=== PATIENT | female | born 1985 | race Caucasian/White ===

== ENCOUNTER → 2022-06-13 08:23 | Outpatient (BNVA) | payer OTHER, SELFPAY | PROVIDERS: Visit Provider Internal Medicine | DX: E03.9 Hypothyroidism, unspecified (principal); E55.9 Vitamin D deficiency, unspecified | CPT/HCPCS: 99202 ==

== ENCOUNTER 2022-06-13 09:05 | Outpatient (REF) | payer OTHER, SELFPAY ==
[2022-06-13 11:43] LABS: Free T4 (Free Thyroxine) 1.03 ng/dL (0.71-1.85); Thyroid Stimulating Hormone 1.22 uIU/mL (0.32-4.0); Vitamin D 25-OH Total 23.8 ng/mL (>30)
[2022-06-15 10:53] LABS: Thyroglobulin Antibodies 75 IU/mL (< or = 1); Thyroid Peroxidase Antibodies 172 IU/mL (<9)
== END 2022-06-13 09:06 | disposition home or self-care (01) ==
LOC: HO.10HDL 09:05
PROVIDERS: Visit Provider Internal Medicine
DX: E03.9 Hypothyroidism, unspecified (principal); E55.9 Vitamin D deficiency, unspecified
CPT/HCPCS: 36415; 82306; 84439; 84443; 86376; 86800

== ENCOUNTER 2022-07-09 12:50 | Outpatient (REF) | payer OTHER, SELFPAY ==
--- NOTE | ~2022-07-09 | US_ITS ---
EXAMINATION: US THYROID CLINICAL INFORMATION: Hypothyroidism, unspecified. COMPARISON: None available. TECHNIQUE: Linear transducer grayscale and color Doppler examination with attention to the region of the thyroid. FINDINGS: SIZE: Measurements of the thyroid lobes and nodules are given in sagittal, anteroposterior and transverse dimensions respectively. Right Thyroid Lobe: 4.1 x 2.0 x 1.6 cm, volume 6.9 mL. Parenchyma: The gland echotexture is heterogeneous. Thyroid vascularity is increased. Left Thyroid Lobe: 4.9 x 1.7 x 1.5 cm, volume 6.5 mL. Parenchyma: The gland echotexture is heterogeneous. Thyroid vascularity is increased. Isthmus: 0.4 cm in maximum AP dimension. No focal thyroid nodule is seen. NODES: No lymphadenopathy is seen in the tissue surrounding the thyroid gland. US/US thyroid IMPRESSION: Heterogeneous hypervascular thyroid which can be seen in the setting of thyroiditis. ACR TI-RADS RECOMMENDATION REFERENCE: Ultrasound-guided fine-needle aspiration, followup ultrasound, no further follow up. * TR1 (0 point) and TR2 (2 points): No FNA or follow up. * TR3 (3 points): FNA if more than or equal to 2.5 cm in maximum dimension, followup ultrasound in 1, 3 and 5 years if 1.5 to 2.4 cm in maximum dimension. * TR4 (4-6 points): FNA if more than or equal to 1.5 cm in maximum dimension, followup ultrasound in 1, 2, 3 and 5 years if 1 to 1.4 cm in maximum dimension. * TR5 (more than or equal to 7 points): FNA if more than or equal to 1 cm in maximum dimension, followup ultrasound every year for 5 years if 0.5 to 0.9 cm in maximum dimension. * TR3, TR4 or TR5 nodules that are below the size threshold for followup receive no follow up.
== END 2022-07-09 12:51 | disposition home or self-care (01) ==
LOC: HO.HMGCX 12:50
PROVIDERS: Visit Provider Internal Medicine
DX: E03.9 Hypothyroidism, unspecified (principal)
CPT/HCPCS: 76536

== ENCOUNTER 2022-09-17 14:21 | Outpatient (REF) | payer OTHER, SELFPAY | END 2022-09-17 14:22 | disposition home or self-care (01) | LOC: HO.HMGCLDS 14:21 | PROVIDERS: Absent Provider Internal Medicine Endocrinology, Diabetes & Metabolism; Visit Provider Internal Medicine | DX: E03.9 Hypothyroidism, unspecified (principal) | CPT/HCPCS: 36415; 84439; 84443 ==

== ENCOUNTER 2022-09-26 08:31 | Outpatient (AMB) | payer OTHER, SELFPAY ==
--- NOTE | 2022-09-26 08:31 | A.OFFVIS_ITS ---
Intake Intake Visit Reasons: F/U Hypothyroidism Intake Note: pt is here for hypothyroidism Allergies No Known Allergies Allergy (Verified 09/26/22 08:55) Medication List - Last Reconciled 09/26/22 by Mone Pelayo DO cholecalciferol (vitamin D3) 50 mcg PO DAILY 30 days PNV 119-iron fum-folic acid 29 mg iron- 1 mg tabs PO Tirosint (levothyroxine) 137 mcg PO DAILY 30 days NS HPI HPI Comments History of Present Illness Details 37 YO Female with a PMHx of hypothyroidism who is seen in F/U. She is currently , 9 weeks gestation. She reports that 8 years ago in her first year she noted fatigue, hair loss and other symptoms of hypothyroidism. She reports shortly thereafter she was diagnosed with hypothyroidism and was started on lt4, currently using tirosint 100 mcg PO daily. She then this year began experiencing fatigue, brain fog, hair loss and body aches. She was referred to Rheumatology and underwent evaluation. 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 She then requested referral to Endocrinology. She notified us of her at approximately 4 weeks gestation. Her dose of Tirosint was increased by 25% at that time from 100 mcg PO daily to 125 mcg PO daily. Labs were repeated 6 weeks later with TSH 2.8. Her dose of Tirosint was then increased to 137 mcg PO daily, which she remains on now. She denies any family history of thyroid disease. Labs: Laboratory Tests 06/13/22 09/17/22 09:09 14:26 TSH 2.80 Free T4 1.00 Thyroglobulin Anti body 75 H Thyroid Peroxidase Ab 172 H PFSH Medical History Hypothyroidism Vitamin D deficiency Surgical History No pertinent past surgical history Family History Father No known health problems Mother No known health problems Social History Alcohol intake: never Patient Tobacco Use Status: Never used Tobacco Assessment & Plan Assessment & Plan (1) Hypothyroidism: Code(s): E03.9 - Hypothyroidism, unspecified Plan: Patient with a history of hypothyroidism. She is now . Her dose of levothyroxine was Tirosint was increased further to 137 mcg PO daily as TSH was above goal of 0.1-2.4. Will repeat levels in 3 weeks time and make further adj ustments as indicated. She will repeat labs q4 weeks throughout her . All of her questions were answered. She is in agreement with this plan of care. I spent 20 minutes in reviewing the record, seeing the patient and documenting in the medical record, including 5 minutes on the phone with the Patient. Orders: Orders Free T4 (Free Thyroxine) 8 Weeks E03.9 - Hypothyroidism, unspecified Thyroid Stimulating Hormone 8 Weeks E03.9 - Hypothyroidism, unspecified Telehealth Telehealth Location of provider rendering services: practice address Location of patient: address on file Patient Identification confirmed using: Name, : Yes Telehealth method: voice only Patient verbally consented to treatment: Yes Patient verbally consented to billing insurance company: Yes Patient informed of any privacy concerns related to visit: Yes Coding Level of Care Code Tele Est Pt Level 3 (17574) Diagnoses Hypothyroidism E03.9
== END 2022-09-26 12:55 | disposition home or self-care (01) ==
LOC: HO.ENCR 08:31
PROVIDERS: Visit Provider Internal Medicine
DX: E03.9 Hypothyroidism, unspecified (principal)
CPT/HCPCS: 99213

== ENCOUNTER → 2022-09-26 08:31 | Outpatient (BNVA) | payer OTHER, SELFPAY | PROVIDERS: Visit Provider Internal Medicine ==

== ENCOUNTER 2022-10-15 11:03 | Outpatient (REF) | payer OTHER, SELFPAY ==
[2022-10-15 15:15] LABS: Free T4 (Free Thyroxine) 0.87 ng/dL (0.71-1.85)
== END 2022-10-15 11:04 | disposition home or self-care (01) ==
LOC: HO.HMGCLDS 11:03
PROVIDERS: Absent Provider Internal Medicine; Visit Provider Internal Medicine Endocrinology, Diabetes & Metabolism
DX: E03.9 Hypothyroidism, unspecified (principal)
CPT/HCPCS: 36415; 84439; 84443

== ENCOUNTER 2022-11-19 13:01 | Outpatient (REF) | payer OTHER, SELFPAY ==
[2022-11-19 16:38] LABS: Free T4 (Free Thyroxine) 0.75 ng/dL (0.71-1.85); Thyroid Stimulating Hormone 1.19 uIU/mL (0.32-4.0)
== END 2022-11-19 13:02 | disposition home or self-care (01) ==
LOC: HO.HMGCLDS 13:01
PROVIDERS: Internal Medicine Endocrinology, Diabetes & Metabolism; Visit Provider Internal Medicine
DX: E03.9 Hypothyroidism, unspecified (principal)
CPT/HCPCS: 36415; 84439; 84443

== ENCOUNTER 2022-12-10 10:49 | Outpatient (REF) | payer OTHER, SELFPAY ==
[2022-12-10 14:24] LABS: Free T4 (Free Thyroxine) 0.85 ng/dL (0.71-1.85); Thyroid Stimulating Hormone 0.68 uIU/mL (0.32-4.0)
== END 2022-12-10 10:50 | disposition home or self-care (01) ==
LOC: HO.HMGCLDS 10:49
PROVIDERS: Visit Provider Internal Medicine Endocrinology, Diabetes & Metabolism
DX: E03.9 Hypothyroidism, unspecified (principal)
CPT/HCPCS: 36415; 84439; 84443

== ENCOUNTER 2023-02-18 11:19 | Outpatient (AMB) | payer OTHER, SELFPAY ==
[2023-02-18 11:22] VITALS: BP 120/64; PULSE 80; BMI 42.6
--- NOTE | 2023-02-18 11:22 | A.OFFVIS_ITS ---
Intake Vital Signs 02/18/23 11:22 Height 5 ft 6 in Weight 264 lb 1.82 oz BMI 42.6 BP 120/64 Blood Pressure Location Lt brachial Position Sitting Pulse 80 Pulse Source Pulse Oximeter Intake Visit Reasons: F/U Hypothyroidism/CONFIRMED Intake Note: Patient present today for Hypothyroidism follow up visit. Previously managed by Dr. Bob. Prototype Special Build Required: No Accompanied by: Self / Same As Patient Allergies No Known Allergies Allergy (Verified 02/18/23 11:26) Medication List - Last Reconciled 02/18/23 by Placido Toure MD cholecalciferol (vitamin D3) 50 mcg PO DAILY 30 days PNV 119-iron fum-folic acid 29 mg iron- 1 mg tabs PO Tirosint (levothyroxine) 137 mcg PO DAILY 30 days NS HPI HPI Comments History of Present Illness Details 37 YO Female with a PMHx of hypothyroidi sm who is seen in F/U. She is currently , 30 weeks gestation. She reports that 8 years ago in her first year she noted fatigue, hair loss and other symptoms of hypothyroidism. She reports shortly thereafter she was diagnosed with hypothyroidism and was started on lt4, currently using tirosint 137 mcg PO daily. She then this year began experiencing fatigue, brain fog, hair loss and body aches. She was referred to Rheumatology and underwent evaluation. 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 She then requested referral to Endocrinology. She notified us of her at approximately 4 weeks gestation. Her dose of Tirosint was increased by 25% at that time from 100 mcg PO daily to 125 mcg PO daily. Labs were repeated 6 weeks later with TSH 2.8. Her dose of Tirosint was then increased to 137 mcg PO daily, which she remains on now. She denies any family history of thyroid disease. Labs: Laboratory Tests 06/13/22 09/17/22 09:09 14:26 TSH 2.80 Free T4 1.00 Thyroglobulin Anti body 75 H Thyroid Peroxidase Ab 172 H Blood work done 01/21 at [facility] Medical History Hypothyroidism Vitamin D deficiency Surgical History No pertinent past surgical history Family History Father No known health problems Mother No known health problems Social History (System 12/27/22 @ 13:35 by Mee Aldrich) Alcohol intake: never Patient Tobacco Use Status: Never used Tobacco Physical Exam Vital Signs: Last Vital Signs Pulse 80 02/18/23 11:22 BP 120/64 02/18/23 11:22 BMI result Body Mass Index 42.6 Const Other: Thyroid gland is normal size weighs about 15 g . r Assessment & Plan Assessment & Plan (1) Hypothyroidism: Code(s): E03.9 - Hypothyroidism, unspecified Plan: This 37-year-old white female with a history of hypothyroidism. Currently 30 weeks . She appears to be clinically euthyroid on Tirosint 137 ug Plan is to recheck TSH and free T4 and adjust tirosint accordingly. Will also placed orders for thyroid function studies to be done in 4 weeks and 8 weeks post- Orders: Orders Thyroid Stimulating Hormone Today E03.9 - Hypothyroidism, unspecified Free T4 (Free Thyroxine) 4 Weeks E03.9 - Hypothyroidism, unspecified Free T4 (Free Thyroxine) Today E03.9 - Hypothyroidism, unspecified Thyroid Stimulating Hormone 4 Weeks E03.9 - Hypothyroidism, unspecified Free T4 (Free Thyroxine) 8 Weeks E03.9 - Hypothyroidism, unspecified Thyroid Stimulating Hormone 8 Weeks E03.9 - Hypothyroidism, unspecified Coding Level of Care Code Est Pt Level 3 (47671) Diagnoses Hypothyroidism E03.9
== END 2023-02-18 11:38 | disposition home or self-care (01) ==
PROVIDERS: Visit Provider Internal Medicine Endocrinology, Diabetes & Metabolism
DX: E03.9 Hypothyroidism, unspecified (principal)
CPT/HCPCS: 99213

== ENCOUNTER → 2023-02-18 11:19 | Outpatient (BNVA) | payer OTHER, SELFPAY | PROVIDERS: Visit Provider Internal Medicine Endocrinology, Diabetes & Metabolism | DX: E03.9 Hypothyroidism, unspecified (principal) | CPT/HCPCS: 99212 ==

== ENCOUNTER 2023-02-18 11:38 | Outpatient (REF) | payer OTHER, SELFPAY ==
[2023-02-18 14:20] LABS: Free T4 (Free Thyroxine) 0.74 ng/dL (0.71-1.85); Thyroid Stimulating Hormone 0.27 uIU/mL (0.32-4.0)
== END 2023-02-18 11:39 | disposition home or self-care (01) ==
LOC: HO.10HDL 11:38
PROVIDERS: Visit Provider Internal Medicine Endocrinology, Diabetes & Metabolism
DX: E03.9 Hypothyroidism, unspecified (principal)
CPT/HCPCS: 36415; 84439; 84443

== ENCOUNTER 2023-03-18 11:28 | Outpatient (REF) | payer OTHER, SELFPAY | END 2023-03-18 11:29 | disposition home or self-care (01) | LOC: HO.HMGCLDS 11:28 | PROVIDERS: Visit Provider Internal Medicine Endocrinology, Diabetes & Metabolism | DX: E03.9 Hypothyroidism, unspecified (principal) | CPT/HCPCS: 36415; 84439; 84443 ==

== ENCOUNTER 2023-05-06 12:17 | Outpatient (REF) | payer OTHER, SELFPAY ==
[2023-05-06 14:58] LABS: Free T4 (Free Thyroxine) 1.07 ng/dL (0.71-1.85); Thyroid Stimulating Hormone 0.54 uIU/mL (0.32-4.0)
== END 2023-05-06 12:18 | disposition home or self-care (01) ==
LOC: HO.HMGCLDS 12:17
PROVIDERS: Visit Provider Internal Medicine Endocrinology, Diabetes & Metabolism
DX: E03.9 Hypothyroidism, unspecified (principal)
CPT/HCPCS: 36415; 84439; 84443

== ENCOUNTER 2023-06-21 13:44 | Outpatient (REF) | payer OTHER, SELFPAY ==
[2023-06-21 17:19] LABS: Free T4 (Free Thyroxine) 0.94 ng/dL (0.71-1.85); Thyroid Stimulating Hormone 0.91 uIU/mL (0.32-4.0)
== END 2023-06-21 13:45 | disposition home or self-care (01) ==
LOC: HO.HMGCLDS 13:44
PROVIDERS: Visit Provider Internal Medicine Endocrinology, Diabetes & Metabolism
DX: E03.9 Hypothyroidism, unspecified (principal)
CPT/HCPCS: 36415; 84439; 84443

== ENCOUNTER 2023-08-22 15:53 | Outpatient (AMB) | payer OTHER, SELFPAY ==
[2023-08-22 15:55] VITALS: BP 130/82; PULSE 104; BMI 41.5
--- NOTE | 2023-08-22 15:55 | MHC.OFFVIS ---
Vital Signs 08/22/23 15:55 Height 5 ft 6 in Weight 256 lb 13.416 oz BMI 41.5 BP 130/82 Blood Pressure Location Lt brachial Position Sitting Pulse 104 H Pulse Source Pulse Oximeter Intake Visit Reasons: Hypothryoidism/CONFIRMED Intake Note: Patient present today for Hypothyroidism follow up visit. 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 She is currently , 30 weeks gestation. She reports that 8 years ago in her first year she noted fatigue, hair loss and other symptoms of hypothyroidism. She reports shortly thereafter she was diagnosed with hypothyroidism and was started on lt4, currently using tirosint 137 mcg PO daily. She then this year began experiencing fatigue, brain fog, hair loss and body aches. She was referred to Rheumatology and underwent evaluation. 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 She then requested referral to Endocrinology. She notified us of her at approximately 4 weeks gestation. Her dose of Tirosint was increased by 25% at that time from 100 mcg PO daily to 125 mcg PO daily. Labs were repeated 6 weeks later with TSH 2.8. Her dose of Tirosint was then increased to 137 mcg PO daily, she is currently on 125 mcg of Tirosint She denies any family history of thyroid disease. Labs: Laboratory Tests 06/13/22 09/17/22 09:09 14:26 TSH 2.80 Free T4 1.00 Thyroglobulin Antibody 75 H Thyroid Peroxidase Ab 172 H Blood work done 01/21 at [facility] Medical History Hypothyroidism Vitamin D deficiency Surgical History No pertinent past surgical history Family History Father No known health problems Mother No known health problems Social History Alcohol intake: never Patient Tobacco Use Status: Never used Tobacco Physical Exam Vital Signs: Last Vital Signs Pulse 104 H 08/22/23 15:55 BP 130/82 08/22/23 15:55 BMI result Body Mass Index 41.5 Const Other: Thyroid gland is normal size weighs about 15 g . r Assessment & Plan Assessment & Plan (1) Hypothyroidism: Code(s): E03.9 - Hypothyroidism, unspecified Category: Medical Plan: This 37-year-old white female with a history of hypothyroidism. Currently 30 weeks . She appears to be clinically and biochemically euthyroid on Tirosint 125 ug Plan is to to the current therapy. At this point, patient can follow up with the primary care provider returned back to endocrinology as needed Coding Level of Care Code Est Pt Level 3 (16565) Diagnoses Hypothyroidism E03.9
== END 2023-08-22 16:17 | disposition home or self-care (01) ==
PROVIDERS: Visit Provider Internal Medicine Endocrinology, Diabetes & Metabolism
DX: E03.9 Hypothyroidism, unspecified (principal)
CPT/HCPCS: 99213

== ENCOUNTER → 2023-08-22 15:53 | Outpatient (BNVA) | payer OTHER, SELFPAY | PROVIDERS: Visit Provider Internal Medicine Endocrinology, Diabetes & Metabolism | DX: E03.9 Hypothyroidism, unspecified (principal) | CPT/HCPCS: 99212 ==